=== PATIENT | female | born 1955 | race Caucasian/White ===

== ENCOUNTER 2019-05-09 23:22 | Emergency (ER) | payer BC, MEDICARE ==
[~2019-05-09] VITALS: Ht 157.5 cm; Wt 99.8 kg
[2019-05-09 23:53] VITALS: BP 199/80
--- NOTE | 2019-05-09 23:53 | NUR ---
ER Nurse Note: Pt came from home c/o right wrist pain. Pt stated she was playing with her family member, tripped and fell; hurting her right wrist. Pt stated she landed on her wrist. Wrist swollen, cap refill less than 3 secs; pt able to move fingers. Will continue to montior.
[2019-05-10] MEDS ORDERED: Tylenol #3 tab (300mg/30mg) ORAL ONE
--- NOTE | 2019-05-10 00:12 | Emergency Room Report ---
History of Present Illness General Chief Complaint: Multiple Trauma/Fall Source: Patient Present Illness HPI This is a 63-year-old female who is right-hand dominant. She has a history of hypertension. She presents with chief complaint of right wrist injury. She was playing with her grandson yesterday and she fell. She landed on her right wrist. She complained of wrist pain. Worse with movement. Now swollen. Pain is 9 out of 10. No nausea no vomiting. Better with rest. No other injury. Allergies: Coded Allergies: PENICILLINS (Verified Allergy, Unknown, 05/09/19) Patient History Past Medical History: see triage record, old chart reviewed, HTN Past Surgical History: none Pertinent Family History: none Social History: Denies: smoking Immunizations: other Reviewed Nursing Documentation: PMH: Agreed; PSxH: Agreed Nursing Documentation-PMH Past Medical History: No History, Except For Hx Hypertension: Yes Review of Systems Eye: Denies: eye pain, blurred vision ENT: Denies: ear pain, nose congestion, throat swelling Respiratory: Denies: cough, shortness of breath Cardiovascular: Denies: chest pain, palpitations Gastrointestinal: Denies: abdominal pain, diarrhea, nausea, vomiting Musculoskeletal: Reports: joint pain; Denies: back pain Skin: Denies: rash Neurological: Denies: headache, numbness Endocrine: Denies: increased thirst, increased urine Hematologic/Lymphatic: Denies: easy bruising All Other Systems: negative except mentioned in HPI Physical Exam Vital Signs Date Time Temp Pulse Resp B/P (MAP) Pulse Ox O2 Delivery O2 Flow Rate FiO2 05/09/19 23:28 98.4 97 12 199/80 (119) 97 Room Air Vitals with high blood pressure Sp02 EP Interpretation: reviewed, normal General Appearance: well appearing, no apparent distress, alert Head: normocephalic, atraumatic Eyes: bilateral eye PERRL, bilateral eye EOMI ENT: hearing grossly normal, normal pharynx Neck: full range of motion, supple, no meningismus Respiratory: chest non-tender, lungs clear, normal breath sounds Cardiovascular #1: regular rate, rhythm, no murmur Gastrointestinal: normal bowel sounds, non tender, no mass, no organomegaly, no bruit, non-distended Musculoskeletal: back normal, gait/station normal, other - Right wrist: There is swelling and tenderness to the distal radius. Decreased range of motion secondary to pain. Elbow nontender. Fingers nontender. Pulses normal. Psychiatric: mood/affect normal Skin: warm/dry Procedures Splinting Splinting : Consent: Verbal Location: right wrist Hand-Made Type: plaster Splint: sugar-tong Pre-Proc Neuro Vasc Exam: normal Post-Proc Neuro Vasc Exam: normal Patient Tolerated: Well Complications: None Medical Decision Making Diagnostic Impression: Primary Impression: Radius distal fracture Qualified Codes: S52.571A - Other intraarticular fracture of lower end of right radius, initial encounter for closed fracture ER Course Patient with an intra-articular fracture still radius. No dislocation. Will discharge home. Other X-Ray Diagnostic Results Other X-Ray Diagnostic Results : X-Ray ordered: Rt wrist xrays # of Views/Limited Vs Complete: 3 View Indication: Pain EP Interpretation: Yes Interpretation: no dislocation, no soft tissue swelling, other - intraarticular frx of distal radius Impression: Other - distal radius Electronically Signed by: Robb Torre MD Last Vital Signs Date Time Temp Pulse Resp B/P (MAP) Pulse Ox O2 Delivery O2 Flow Rate FiO2 05/09/19 23:53 98.4 97 12 199/80 97 Room Air Status: improved Disposition: HOME, SELF-CARE Condition: Stable Scripts Ibuprofen* (MOTRIN*) 600 Mg Tablet 600 MG ORAL THREE TIMES A DAY, #30 TAB 0 Refills Prov: Robb Torre MD 05/10/19 Hydrocodone/Acetaminophen 5-325* (HYDROCODONE/ACETAMINOPHEN 5-325*) 1 Each Tablet 1 TAB ORAL Q6H PRN for For Pain, #20 TAB 0 Refills Prov: Robb Torre MD 05/10/19 Additional Instructions: Elevate arm. Ice pack to the area. Follow-up with your doctor within a week. You will need a referral to see an orthopedic doctor. Return if worse. Robb Torre MD May 10, 2019 00:12
[2019-05-10] MEDS ORDERED: IBUPROFEN600 MG ORAL (00:22)
[2019-05-10] MEDS ORDERED: HYDROCODON-ACE1 EA15 ORAL (00:22)
[2019-05-10 00:55] VITALS: BP 146/82
--- NOTE | 2019-05-10 00:55 | NUR ---
ER Nurse Note: All orders completed per ERMD orders. Pt seen, treated, medically cleared for discharge by ERMD. Discharge instructions and prescriptions given with repeat verbazliaion by pt. Instructed pt to follow up with primary care provider. Pt a&ox4, VSS, no signs of distress. X-ray explained to pt, splint made by water resources technical officer. ID band removed. Pt left with all belongings with steady gait via own transportation.
--- NOTE | 2019-05-10 11:33 | Diagnostic Imaging Report ---
Indication: Right wrist pain COMPARISON: None Findings: 3 views of the right wrist were obtained. There is a fracture involving the distal radius with some impaction and comminution. The fracture is intra-articular. Ulnar styloid fracture also noted. Bones are osteopenic. There is soft tissue swelling. IMPRESSION: Acute fracture of the distal radius
== END 2019-05-10 00:55 | disposition home or self-care (01) ==
LOC: EMR 23:43 → EDSEX 23:43 → EMR 05-10 00:55
DX: S52.571A Other intraarticular fracture of lower end of right radius, initial encounter for closed fracture (principal); I10 Essential (primary) hypertension; Z88.0 Allergy status to penicillin; W19.XXXA Unspecified fall, initial encounter; Y92.89 Other specified places as the place of occurrence of the external cause
CPT/HCPCS: 29125; 99283